=== PATIENT | male | born 1990 | race Two or more races ===

== ENCOUNTER 2016-11-12 23:39 | Emergency (ER) | payer MEDICAID ==
[2016-11-12 23:46] VITALS: TEMP 98.1
--- NOTE | 2016-11-12 23:48 | EDPHY ---
H & P Stated Complaint: lac Source: Patient - Personal History Current Tetanus/Diphtheria Vaccine: Yes - Medical/Surgical History Hx Asthma: No Hx Chronic Respiratory Disease: No Hx Diabetes: No Hx Cardiac Disease: No Hx Renal Disease: No Hx Cirrhosis: No Hx Alcoholism: No Hx HIV/AIDS: No Hx Splenectomy or Spleen Trauma: No Other PMH: anxiety - Social History Smoking Status: Former smoker HPI/ROS: HPI CHIEF COMPLAINT: Fall, head laceration HISTORY OF PRESENT ILLNESS: This patient very pleasant 26-year-old male, who presents emergency room after slipped on ice and struck his head on a stair and sustaining a left forehead laceration 4 cm in horizontal length, no LOC. He denies headache or vomiting. Denies visual disturbance. States this happened approximately 30 minutes ago. His tetanus shot is up-to-date. He has not had any alcohol to drink tonight. Past Medical History:Denies any significant medical history Past Surgical History: back surgery Social History: No daily use of tobacco, alcohol or drugs Family History: Noncontributory ROS REVIEW OF SYSTEMS: A comprehensive 10 point review of systems is otherwise negative aside from elements mentioned in the history of present illness. Exam Constitutional triage nursing summary reviewed, vital signs reviewed, awake/ alert. Eyes normal conjunctivae and sclera, EOMI, PERRLA. HENT head/neck: Left forehead hematoma with an overlying 4 cm horizontal laceration, moist mucus membranes, no epistaxis, neck supple/ no meningismus, no raccoon eyes. Respiratory clear to auscultation bilaterally, normal breath sounds, no respiratory distress, no wheezing. Cardiovascular rate normal, regular rhythm, no murmur, no edema, distal pulses normal. Gastrointestinal soft, non-tender, no rebound, no guarding, normal bowel sounds, no distension, no pulsatile mass. Genitourinary no CVA tenderness. Musculoskeletal no midline vertebral tenderness, full range of motion, no calf swelling, no tenderness of extremities, no meningismus, good pulses, neurovascularly intact. Skin pink, warm, & dry, no rash, skin atraumatic. Neurologic awake, alert and oriented x 3, AAOx3, moves all 4 extremities equally, motor intact, sensory intact, CN II-XII intact, normal cerebellar, normal vision, normal speech. Psychiatric normal mood/affect. Heme/Lymph/Immune no lymphadenopathy. Differential Diagnosis: Includes but is not limited to in a particular order closed-head injury, intracranial bleed, concussion, forehead laceration, hematoma, soft tissue injury Medical Decision Making: This patient had a CT head without contrast to rule out significant intracranial trauma. His tetanus shot is up-to-date. He will need his laceration repaired under sterile conditions. Re-evaluation: CT scan of the head without IV contrast The results of the study are negative for acute traumatic injury The study was read by Dr. Ignacio Rodríguez I viewed the images myself on the PACS system. (Elijah Box) Constitutional: Initial Vital Signs Temperature (C) 36.7 C 11/12/16 23:43 Heart Rate 130 H 11/12/16 23:43 Respiratory Rate 14 11/12/16 23:43 Blood Pressure 120/77 11/12/16 23:43 O2 Sat (%) 96 11/12/16 23:43 O2 Delivery Mode Room Air Home Medications: Medication Instructions Recorded ALPRAZolam 11/12/16 Medical Decision Making Procedures: Laceration repair. Verbal consent was obtained from the patient. The 3 cm laceration on the left frontal forehead was anesthetized using 1% lidocaine with epinephrine. The wound was irrigated with saline, draped and explored to its base with a gloved finger. There were no deep structures involved. The wound was repaired with 6 0 Prolene, 10 sutures. The wound repair was simple. The procedure was performed by myself. (Barbara Thurman) Departure - Departure Disposition: Home, Routine, Self-Care Clinical Impression: Laceration Condition: Good Instructions: Laceration (ED), Care For Your Stitches (ED) Additional Instructions: 1. You will need to have her sutures removed in 7 days. 2. please keep your wound clean, dry, intact. 3. Return emergency room if you have any further questions or concerns includes worsening headache, or questions concerns about her wound. Referrals: NONE *PRIMARY CARE P,. [Primary Care Provider] - As per Instructions
--- NOTE | 2016-11-13 00:24 | CT ---
CT Scan of the Head (Without Contrast) Clinical Indications: 26-year-old male who slipped on ice, striking his forehead against a step, and sustaining a 4 cm laceration. There is no loss of consciousness. Technique: Axial CT images were acquired from the foramen magnum through the skull vertex, without i ntravenous contrast. Soft tissue, subdural, and bone windows were reviewed on the computer workstati on. Images were reformatted at 5.00 and 1.50 mm increments, and are reformatted in sagittal and lay nal planes. DFOV is 25.0 cm. Dose reduction techniques were utilized. Comparison Study: None. Findings: There is a left forehead scalp laceration present (this is noted on series 4, images 54-61) . There are no intracranial mass lesions identified, and there is no evidence of an acute or subacute intracranial hemorrhage, or an acute infarct. The ventricles and subarachnoid spaces are normal in size for this age group. The bone windows reveal no sign of a fracture. The mastoid air cells are f ree of fluid. There is some mild chronic mucosal thickening associated with the maxillary sinuses, le ft greater than right. A small air-fluid level on the left may reflect a superimposed "acute sinusiti s" component. The ostiomeatal complexes are patent. The frontal, ethmoid, and sphenoid sinuses are al so patent. There is no osseous erosion. The zygomatic arches are intact, as are the orbital rims and the medial and lateral pterygoid plates. The temporomandibular joints are anatomically-aligned. The c raniocervical junction, sella turcica, pineal gland, and the orbits are normal. Impression: 1. Left forehead scalp laceration. 2. There is no acute intracranial abnormality. 3. Chronic bilateral maxillary sinus mucosal thickening, with a potential acute superimposed sinusiti s component involving the left maxillary sinus; clinical correlation is suggested. Results were discussed with Dr. Elijah Box. A test result has been communicated to a licensed care provider and documented in [place], 12:18:59 A M, 11/13/2016, [place] Message ID [id number].
[2016-11-13 00:48] VITALS: BP 116/89; PULSE 72; RESP 20; O2SAT 98
== END 2016-11-13 00:48 | disposition home or self-care (01) ==
PROC: 0HQ1XZZ Repair Face Skin, External Approach (ICD-10-PCS; principal; 2016-11-12)
DX: S01.81XA Laceration without foreign body of other part of head, initial encounter (principal); Z87.891 Personal history of nicotine dependence; W00.0XXA Fall on same level due to ice and snow, initial encounter